=== PATIENT | female | born 1995 | race Caucasian/White ===

== ENCOUNTER 2018-08-18 06:46 | Inpatient (IN) | payer BC ==
[~2018-08-18] VITALS: Ht 167.6 cm; Wt 95.9 kg
[2018-08-23] VITALS (48 sets, daily range): BP systolic 104–137; BP diastolic 55–90; PULSE 59–85; TEMP 97.3–98.9
[2018-08-23] MEDS ORDERED: PRENATAL (06:57)
--- NOTE | 2018-08-23 07:05 | NUR ---
0705-G1 40.[address] Chin ambulatory to LR 5 for scheduled IOL. Patient reports good movement. Denies LOF or VB. Assisted into gown and placed on EFM. VSS, see flow record. Consents reviewed and signed, assessment complete. 0715-IV to L Wrist. Blood collected and sent to lab, LR infusing per orders. 0736-SVE by this RN, /2 0745-Pitocin at 2mu/min per protocol and order. Updated on plan of care.
--- NOTE | 2018-08-23 08:40 | NUR ---
0840-Dr. Joiner reviews strip on unit. In to see patient. 0845-SVE by , /, AROM by MD clear fluid noted. Clementina care provided. Updated on plan of care. 7976-Patient requests Benitez newell,PHOTO RETOUCHER notified
[2018-08-23 08:42] LABS: BASO % 0.2 % (0.0-2.0); EOS # 0.1 (0.0-0.7); EOS % 0.7 % (0-4.0); GRAN # 5.5 (1.4-6.5); GRAN % 67.9 % (42.2-75.2); HEMATOCRIT 38.3 % (37.0-47.0); HEMOGLOBIN 12.9 g/dl (12.5-16.0); MEAN CELL VOLUME 90 fl (80.0-100.0); MEAN CORPUSCULAR HEMOGLOBIN 30 pg (27.0-31.0); MEAN CORPUSCULAR HGB CONC 34 g/dl (33.0-37.0); MEAN PLATELET VOLUME 10.9 fl (7.4-10.4); MONO # 0.4 (0.1-0.6); MONO % 5.2 % (1.7-9.3); PLATELET COUNT 169 K/mm3 (130-400); RED BLOOD COUNT 4.28 M/mm3 (4.10-5.30); REDCELL DISTRIBUTION WIDTH-CV 13.1 % (11.5-14.5)
--- NOTE | 2018-08-23 09:28 | NUR ---
0928-Patient sitting up heaving, difficulty tracing FHR due to maternal positioning. RN adjusts EFM. 0935-PRN zofran given, See EMAR.
--- NOTE | 2018-08-23 09:43 | NUR ---
0943-CODIE Marquis to patient room. Patient sitting up on bedside. 0950-SS administered by CODIE Marquis. Patient denies symptoms of reaction. VSS, see flow record. 0955-Repositionied WR with peanut, updated on plan of care and safety.
--- NOTE | 2018-08-23 10:45 | NUR ---
1045-Gonzalez to DD, clear yellow urine return. SVE /-2, shwetha care provided, Repositioned WL with peanut ball.
--- NOTE | 2018-08-23 12:45 | NUR ---
1245-Dr. Joiner to unit. Reviews FHR monitor. 1250-SVE by /+1, Moderate amount of bloody show. Clementina care provided. Repositioned WL with peanut ball. No new orders.
--- NOTE | 2018-08-23 14:13 | NUR ---
1413-Notified MD patient C/+2, orders to begin pushing. 1430-Patient pushes with RN through contraction, moves vertex well. 1500-Notified MD patient pushing well and request MD to unit. 1530-Dr. Joiner to unit. Evaluates pushing with patient. Moves vertex well. Instructions to continue pushing with RN. 1545-MD resumes pushing with patient. 1555-Late Decels down to 90bpm following pushing efforts. Oxygen via oxymask at 10L/min. 1603-Delivery of infant head by MD immediately follwed by body. Viable female infant to mothers abdomen. Care of Infant assumed by LISA Ortega. Apgars 8/9/9. Cord gasses collected and sent per MD orders. 1608-Delivery of Intact placenta by MD, fundal massage firm, lochia WNL. Pitocin bolus per protocol. 2nd Degree perineal lac repaired by MD. Clementina care provided. Updated on plan of care and safety.
[2018-08-24] VITALS: BP 108/62; PULSE 79; TEMP 98.3
[2018-08-24 04:00] VITALS: BP 104/68; PULSE 72; TEMP 97.8
[2018-08-24 07:34] VITALS: BP 106/68; PULSE 72; TEMP 98.2
[2018-08-24 09:25] LABS: HEMOGLOBIN 11.2 g/dl (12.5-16.0)
[2018-08-24 09:33] LABS: HEMATOCRIT 33.8 % (37.0-47.0)
[2018-08-24] MEDS ORDERED: PERCOCET 325 MG1 TA2 PO (10:16)
[2018-08-24] MEDS ORDERED: MOTRIN 800800 MG/TAB PO (10:16)
[2018-08-24 15:51] VITALS: BP 112/68; PULSE 78; TEMP 98.1
== END 2018-08-24 17:03 | disposition home or self-care (01) | DRG 807 ==
LOC: LDR 08-22 10:54 → OB 08-23 19:39
PROVIDERS: ADMIT Obstetrics & Gynecology
PROC: 0KQM0ZZ Repair Perineum Muscle, Open Approach (ICD-10-PCS; principal; 2018-08-23)
PROC: 10E0XZZ Delivery of Products of Conception, External Approach (ICD-10-PCS; principal; 2018-08-23)
DX: O77.0 Labor and delivery complicated by meconium in amniotic fluid (principal); Z37.0 Single live birth; Z3A.40 40 weeks gestation of pregnancy; O76 Abnormality in fetal heart rate and rhythm complicating labor and delivery; O70.1 Second degree perineal laceration during delivery
CPT/HCPCS: J2405; J2590; J2795; J7120

== ENCOUNTER 2020-03-23 09:48 | Emergency (ER) | payer BC ==
[~2020-03-23] VITALS: Ht 167.6 cm; Wt 79.1 kg
[~2020-03-23 09:48] MED LIST: MOTRIN 800800 MG/TAB PO; PERCOCET 325 MG1 TA2 PO; PRENATAL
[2020-03-23 09:52] VITALS: TEMP 97.9
[2020-03-23 10:10] LABS: COLLECTION METHOD CLEAN CATCH
[2020-03-23 10:29] LABS: BASO % 0.3 % (0.0-2.0); EOS # 0.1 (0.0-0.7); EOS % 1.5 % (0-4.0); GRAN # 4.3 (1.4-6.5); GRAN % 60.8 % (42.2-75.2); HEMATOCRIT 42.9 % (37.0-47.0); HEMOGLOBIN 14.9 g/dl (12.5-16.0); LYMPH # 2.1 (1.2-3.4); LYMPH % 30.1 % (20.0-51.0); MEAN CELL VOLUME 88 fl (80.0-100.0); MEAN CORPUSCULAR HEMOGLOBIN 31 pg (27.0-31.0); MEAN CORPUSCULAR HGB CONC 35 g/dl (33.0-37.0); MEAN PLATELET VOLUME 9.6 fl (7.4-10.4); MONO # 0.5 (0.1-0.6); MONO % 6.9 % (1.7-9.3); PLATELET COUNT 195 K/mm3 (130-400); RED BLOOD COUNT 4.89 M/mm3 (4.10-5.30)
[2020-03-23 10:30] LABS: PH 6 (5-8); SQUAMOUS EPITHELIAL 0-2 /hpf; URINE APPEARANCE Clear; URINE BACTERIA Rare /hpf; URINE BILIRUBIN Negative (NEGATIVE); URINE BLOOD 2+ (NEGATIVE); URINE COLOR Yellow; URINE GLUCOSE Negative (NEGATIVE); URINE KETONE Negative (NEGATIVE); URINE LEUKOCYTE ESTERASE Negative (NEGATIVE); URINE NITRATE Negative (NEGATIVE); URINE PROTEIN(semi-quant) Negative (NEGATIVE); URINE UROBILINOGEN Negative (NEGATIVE)
[2020-03-23 10:42] LABS: ALBUMIN 4.3 gm/dL (3.5-5.0); BILIRUBIN,TOTAL 0.8 mg/dL (0.0-1.0); CALCIUM 9.5 mg/dL (8.4-10.2); CREATININE, serum 0.74 (0.52-1.25); POTASSIUM 4.1 mmol/L (3.4-5.0); TOTAL PROTEIN 7.4 gm/dL (6.4-8.2)
[2020-03-23 13:50] VITALS: BP 121/78; PULSE 81
== END 2020-03-23 13:50 | disposition home or self-care (01) ==
LOC: COL.ER 09:48
PROVIDERS: Nurse Practitioner
DX: O02.1 Missed abortion (principal); Z3A.10 10 weeks gestation of pregnancy

== ENCOUNTER 2021-06-10 10:31 | Outpatient (CLI) | payer BC ==
[~2021-06-10] VITALS: Ht 167.6 cm; Wt 93.8 kg
--- NOTE | 2021-06-10 10:35 | NUR ---
Patient ambulatory to LR5 with spouse, changed into gown, FHR/TOCO monitors applied. Patient states "I started having contractions around 0700 and all have been less than 10 minutes apart, my underwear were wet but don't think my water is broke". Patient denies vaginal bleeding or decreased movement. Plan of care discussed. 1100: SVE- /-2 per Latonya Burks RN. Dr. Brown called and notified.
[2021-06-10] MEDS ORDERED: TUMS ULTRA1000 MG PO (10:53)
--- NOTE | 2021-06-10 10:55 | NUR ---
This RN attempts to SVE, amniotest done and negative.
[2021-06-10 11:15] VITALS: BP 136/80; PULSE 87; TEMP 98.3
--- NOTE | 2021-06-10 12:00 | NUR ---
SVE- 3/80/-2 per Rashard GONZALEZ. 1216: Patient off monitors and given discharge instructions, patient agrees with plan of care. 1220: Patient ambulates off unit with spouse.
[2021-06-10 12:16] VITALS: BP 120/72; PULSE 85
[2021-06-18] MEDS ORDERED: MOTRIN 600600 MG/TAB PO (08:19)
== END 2021-06-10 12:20 | disposition home or self-care (01) ==
LOC: LDRO 10:31
DX: O62.9 Abnormality of forces of labor, unspecified (principal); Z3A.39 39 weeks gestation of pregnancy